=== PATIENT | male | born 1990 | race African-American/Black ===

== ENCOUNTER 2019-01-12 20:59 | Emergency (ER) | payer OTHER ==
[~2019-01-12] VITALS: Ht 177.8 cm; Wt 66.7 kg
== END 2019-01-12 23:10 | disposition home or self-care (01) ==
LOC: ER 21:02
DX: S60.451A Superficial foreign body of left index finger, initial encounter (principal); F17.200 Nicotine dependence, unspecified, uncomplicated; W45.8XXA Other foreign body or object entering through skin, initial encounter; Y93.89 Activity, other specified; Y92.89 Other specified places as the place of occurrence of the external cause; Y99.8 Other external cause status

== ENCOUNTER 2022-01-06 09:29 | Emergency (ER) | payer OTHER ==
[~2022-01-06] VITALS: Ht 180.3 cm; Wt 62.1 kg
--- NOTE | 2022-01-06 09:58 | NUR ---
Patient came in to the er c/o constipation x 3 days, takes laxative but not helping, anal soreness. On room air, breathing evenly and unlabored. Kept comfortable, will continue to monitor accordingly.
[2022-01-06] MEDS ORDERED: ONDANSETRON HCL/PF 4 MG/2 ML VIAL ONE (10:29)
[2022-01-06] MEDS ORDERED: MAG HYDROX/AL HYDROX/SIMETH 30 ML UDC ONE (10:29)
[2022-01-06] MEDS ORDERED: MAG HYDROX/AL HYDROX/SIMETH 30 ML UDC PO ONE (10:30)
[2022-01-06] MEDS ORDERED: IV NS 0.9% 1,000 ML BAG IV ONE (10:30)
[2022-01-06] MEDS ORDERED: ONDANSETRON HCL/PF 4 MG/2 ML VIAL IVP ONE (10:30)
[2022-01-06] MEDS ORDERED: FAMOTIDINE/PF INJ 20 MG/2 ML VIAL IV ONE ×2 (10:30)
[2022-01-06 10:34] LABS: BASOPHILS % (AUTO) 0.2 % (0.0-2.0); EOSINOPHILS % (AUTO) 0.4 % (0.0-6.0); HEMATOCRIT 49 % (39-51); HEMOGLOBIN 16.4 g/dL (13.5-17.5); LYMPHOCYTES # (AUTO) 2.2 K/uL (0.8-4.8); LYMPHOCYTES % (AUTO) 12.3 % (20.0-44.0); MEAN CORPUSCULAR HGB CONC 33 g/dl (31.0-36.0); MEAN CORPUSCULAR VOLUME 89 fL (80-96); MONOCYTES # (AUTO) 2.7 K/uL (0.1-1.30); MONOCYTES % (AUTO) 15.2 % (2.0-12.0); NEUTROPHILS # (AUTO) 12.8 K/uL (1.8-8.9); NEUTROPHILS % (AUTO) 71.9 % (43.0-81.0); PLATELET COUNT (AUTO) 217 K/uL (150-450); RED BLOOD CELL COUNT(AUTO) 5.57 MIL/uL (4.5-6.0); WHITE BLOOD COUNT (AUTO) 17.9 K/uL (4.3-11.0)
[2022-01-06 10:44] LABS: CALCIUM, SERUM 9.6 mg/dL (8.5-10.1); POTASSIUM 3.8 mmol/L (3.5-5.1)
[2022-01-06 10:55] LABS: ALBUMIN 3.5 g/dL (3.4-5.0); BILIRUBIN,DIRECT 0.2 mg/dL (0.0-0.2); BILIRUBIN,TOTAL 0.7 mg/dL (0.2-1.0); TOTAL PROTEIN, SERUM 8.7 g/dL (6.4-8.2)
[2022-01-06] MEDS ORDERED: MORPHINE SULFATE INJ 4 MG/ML DISP.SYRIN ONE (11:26)
[2022-01-06] MEDS ORDERED: AMOX/CLAVULANATE 875 MG TABLET ONE (11:27)
[2022-01-06] MEDS ORDERED: AMOX/CLAVULANATE 875 MG TABLET PO ONE (11:30)
[2022-01-06] MEDS ORDERED: MORPHINE SULFATE INJ 2 MG/ML DISP.SYRIN IV ONE (11:30)
[2022-01-06 12:05] LABS: BAND % (MANUAL) 1 % (0.0-5.0); LYMPHOCYTES % (MANUAL) 23 % (16-48); MONOCYTES % (MANUAL) 10 % (0-11.0); NEUTROPHILS % (MANUAL) 66 (42-76)
[2022-01-06] MEDS ORDERED: CEFTRIAXONE 1GM BAG (ER ONLY) 50 ML IV ONE (12:27)
[2022-01-06] MEDS ORDERED: CEFTRIAXONE 1GM BAG (ER ONLY) 1 GM/50 ML PIGGYBACK IV ONE (12:30)
[2022-01-06] MEDS ORDERED: HYDR-3976 PO (13:30)
[2022-01-06] MEDS ORDERED: LOPE2TAB25 PO (13:30)
[2022-01-06] MEDS ORDERED: DOXY100C2 PO (13:30)
[2022-01-06] MEDS ORDERED: NAPR-1164 PO (13:31)
[2022-01-06 13:42] VITALS: BP 125/66
--- NOTE | 2022-01-06 13:43 | NUR ---
Patient discharged to home in stable condition. Written and verbal after care instructions given. Patient verbalizes understanding of instruction.IV removed. Catheter intact and site benign. Pressure and 4x4 applied to site. No bleeding noted.
== END 2022-01-06 13:43 | disposition home or self-care (01) ==
LOC: ER 09:36
DX: K62.89 Other specified diseases of anus and rectum (principal); F17.200 Nicotine dependence, unspecified, uncomplicated
CPT/HCPCS: 99284; 74176; 96365; 96375; 96361; 85025; 80048; 80076; 83735; 36415; 85007; J2270; J3490; J2405; J7030; J0696